=== PATIENT | female | born 1985 | race Caucasian/White ===

== ENCOUNTER 2017-04-20 14:08 | Emergency (ER) | payer OTHER ==
[~2017-04-20] VITALS: Ht 167.6 cm; Wt 55.1 kg
[2017-04-20 14:21] VITALS: TEMP 36.9; Ht 167.6 cm; Wt 55.1 kg
[2017-04-20] MEDS ORDERED: XYLOCAINE 1%/SOD BICARB 20 ML VIAL INFIL ONE (14:45)
[2017-04-20] MEDS ORDERED: CIPR-255 PO (15:22)
[2017-04-20] MEDS ORDERED: CEPH500C PO (15:22)
[2017-04-20 15:28] VITALS: BP 133/87; PULSE 80; O2SAT 99
--- NOTE | 2017-04-20 15:33 | EMERGENCY ROOM VISIT NOTE ---
History First contact with patient: 14:26 Chief Complaint: INFECTION Stated Complaint: INFECTED R INDEX FINGER Nursing Triage Summary: hang nail with infection for a week getting worse and painful History of Present Illness The patient is a 32 year old female who presents to the Emergency Room with complaints of an infection of the right index fingertip. The patient is right- hand-dominant. The patient reports that she has a bad habit of picking hangnails and chewing her nails. The patient reports that she did have some skin irritation when she got into a hot tub 10 days ago. Shortly thereafter, she then started to develop redness of the fingertip that has progressively worsened. She watched a YouTube video and tried to open the wound without success. She rates her discomfort a 7 out of 10. Tetanus immunization is not today, and the patient voices refusal for immunizations. Review of Systems 6 system review was performed and was negative except for pertinent positives and negatives as indicated in history of present illness Past Medical/Surgical History Medical Problems: (1) No significant past medical history Surgical Problems: (1) No history of previous surgery Family History Unremarkable Social History Smoking Status: Former Smoker Alcohol Use: occasionally Marital Status: Housing Status: lives with family Occupation Status: employed Current/Historical Medications Scheduled Cephalexin Monohydrate (Keflex), 500 MG PO QID Ciprofloxacin Hcl (Cipro), 500 MG PO BID Physical Exam Vital Signs Date Time Temp Pulse Resp B/P (MAP) Pulse Ox O2 Delivery O2 Flow Rate FiO2 04/20/17 14:21 36.9 85 20 142/88 98 Room Air Physical Exam CONSTITUTIONAL: Healthy and well nourished. Alert and oriented X 3 with positive affect. MUSCULOSKELETAL: Examination of the right index finger shows notable erythema and edema of the fingertip. She has an area of blanching an underlying whiteness over the ulnar aspect of the finger that extends to the digital pad. Capillary refill is less than 2 seconds. There is no erythema extending proximal to the DIP joint. INTEGUMENTARY: No rash or other significant dermatologic conditions noted. NEUROLOGIC: No focal neurologic deficits noted. Right index fingertip is sensory intact. Medical Decision & Procedures Medications Administered Medications (Trade) Dose Ordered Sig/Seferino Route Start Time Stop Time Status Last Admin Dose Admin Lidocaine HCl (Buffered Lidocaine 1% Inj) 20 ml NOW ONCE INFIL 04/20/17 14:45 12/24/17 14:46 DC 04/20/17 14:43 20 ML Procedure I&D procedure was performed under digital block anesthesia after receiving verbal consent from the patient. Using buffered 1% lidocaine without epinephrine, good digital block anesthesia was administered. The finger was in painted with iodine and allowed to dry. Sterile field was created. Using a # 11 scalpel, a 1 cm incision was made over the ulnar nail fold with mild purulent drainage. Underlying tissue was further opened with iris scissors, then the wound was irrigated with normal saline. The corner of a 2 x 2 gauze and bacitracin was inserted into the wound, then a bulky fluff dressing was applied. The patient tolerated the procedure well with minimal blood loss. ED Course Patient history and physical exam were performed. Nurse's notes were reviewed. Vital signs were reviewed and were normal. I&D procedure was performed under digital block anesthesia. The patient was given additional verbal wound care instructions, including removal of the gauze in 48 hours. I highly suggested covered with an antibiotic, however the patient was continually asking for a homeopathic treatment. I explained that homeopathic treatments will not cover for infection, specifically for high risk of pseudomonas infection. The patient would still like to elect conservative management and will watch for any further redness. She was provided written prescriptions for Keflex and Cipro. She was encouraged to follow-up with her PCP within the next 2-3 days for recheck, and is welcome to return to the emergency department sooner for any progressively worsening infection or other wound concerns. The patient was happy with plan of care, voiced understanding of all discharge instructions, and denied any pain at the time of discharge. Medical Decision Medication Reconcilliation Current Medication List: was personally reviewed by me Blood Pressure Screening Patient's blood pressure: Normal blood pressure Impression Primary Impression: Paronychia of right index finger Departure Information Dispostion Home / Self-Care Prescriptions Ciprofloxacin Hcl (CIPRO) 500 Mg Tab 500 MG PO BID for 7 Days, #14 TAB Prov: Robel Hayward PA 04/20/17 Cephalexin Monohydrate (Keflex) 500 Mg Cap 500 MG PO QID for 7 Days, #28 CAP Prov: Robel Hayward PA 04/20/17 Referrals No Doctor, Assigned (PCP) Forms HOME CARE DOCUMENTATION FORM, IMPORTANT VISIT INFORMATION Patient Instructions [facility] Additional Instructions Keep dressing in place over the next 48 hours. Remove the packing in 48 hours, then clean the wound with soap and water, dry thoroughly and cover with antibiotic ointment and dressing until it further heals. Ibuprofen 800 mg and/or Tylenol 1000 mg every 8 hours. You may also alternate these medications for more effective pain relief: Ibuprofen --4 HRS--> Tylenol --4 HRS--> ibuprofen --4 HRS--> Tylenol .... If the infection progressively worsens, a prescription for Keflex and Cipro filled IMMEDIATELY. Return to the emergency department for any progressively worsening infection or developing fever.
== END 2017-04-20 15:29 | disposition home or self-care (01) ==
LOC: C.EDB 14:10 → C.EDD 15:29
DX: L03.011 Cellulitis of right finger (principal); Z87.891 Personal history of nicotine dependence